=== PATIENT | female | born 1975 | race Caucasian/White ===

== ENCOUNTER 2017-01-14 18:11 | Emergency (ER) | payer OTHER ==
[~2017-01-14] VITALS: Ht 160 cm; Wt 59.1 kg
[~2017-01-14 18:11] MED LIST: ACETAMINOPHEN PO; AMOXICILLIN; AMOXICILLIN500 M1 PO; ATARAX PO; BACTRIM DS TABL1 TA1 PO; CIPRO250 M1 PO; COLACE PO; DICLOFENAC; FLEXERIL10 MG PO; IBUPROFEN PO; LODINE PO; MEDROL DOSEPAK4 MG PO; MEDROL PO; MEDROL4 MG/DOSE- PO; METHADONE PO; NAPROSYN500 MG PO; NO MEDICATIONS; PAXIL PO; PEN-VEE K PO; PENICILLIN V P500 MG PO; PHENERGAN PO; PREDNISONE PO; PYRIDIUM PO; PYRIDIUM100 MG PO; RONDEC DROPS30 ML PO; TUSSIONEX PENN473 ML PO; ULTRAM PO; VISTARIL PO; VOLTAREN75 MG PO; ZITHROMAX PO; ZOFRAN ODT4 MG PO
== END 2017-01-14 20:30 | disposition left against medical advice (07) ==
LOC: SED 18:11
DX: Z53.21 Procedure and treatment not carried out due to patient leaving prior to being seen by health care provider (principal)